=== PATIENT | female | born 1940 | race Caucasian/White ===

== ENCOUNTER 2016-11-23 23:00 | Inpatient (IN) ==
[2016-11-24 01:06] LABS: Basophils # 0.1 10*3/uL (0.0-0.2); Basophils % 1.3 % (0.0-0.8); Eosinophils # 0.1 10*3/uL (0.0-0.87); Eosinophils % 2.6 % (0.00-10.9); Hematocrit 43.8 VOL% (35.7-47.0); Hemoglobin 14.1 GM/DL (12.0-16.0); Immature Granulocytes % 0.4 %; Immature Granulocytes Absolute 0.02 #; Lymphocytes # 1.8 10*3/uL (1.4-4.0); Lymphocytes % 40.5 % (21.3-54.2); Mean Corpuscular HGB Conc 32.2 GM/DL (32-36); Mean Corpuscular Hemoglobin 31 PG (27-34); Mean Corpuscular Volume 95.6 FL (87-102); Mean Platelet Volume 11.5 FL (9.6-12.0); Monocytes # 0.5 10*3/uL (0.11-0.8); Monocytes % 10.6 % (1.7-12.7); Neutrophils % 44.6 % (38.7-73.9); Platelet Count 164 T/CUMM (130-400); Red Blood Count 4.58 MC/CUMM (3.8-5.5); Red Cell Distribution Width 18.5 % (9.3-17.3); White Blood Count 4.5 T/CUMM (4-12)
[2016-11-24 01:20] LABS: D-Dimer 2.3 MG/L FEU; INR 1.4; PT Patient Result 15.6 SECS; Partial Thromboplastin Time 27.5 SECS (0-40)
--- NOTE | 2016-11-24 01:32 | EKG Report ---
Stationary ECG Study [facility] ER Test Date: 11/24/2016 1:30:45 AM Pat Name: STEVIE SOTO Department: Room: Gender: F [place] Operator: SR : 1940 Requested by: Santo Brown Order Number: [id number] Reading MD: MAXIME LAI Intervals [place] Rate: 84 P: 85 UT: 123 QRS: 236 QRSD: 153 T: 53 QT: 450 QTc: 491 Interpretive Statements Sinus rhythm with AV synchronous ventricular pacing Electronically Signed On 11-24-16 07:06:56 CDT by MAXIME LAI [email or web address]
[2016-11-24 01:34] LABS: Alanine Aminotransferase 27 U/L (13-56); Albumin 3.1 G/DL (3.4-5.0); Alkaline Phosphatase 154 U/L (45-117); Amylase 33 U/L (25-115); Apearance,Urine Slightly Hazy (Clear); Aspartate Amino Transferase 38 U/L (0-37); Bacteria,Urine Many /HPF (Few); Bilirubin,Urine Negative (Negative); Blood Urea Nitrogen 32 MG/DL (7-18); Blood, Urine Moderate mg/dL (Negative); Calcium 8.9 MG/DL (8.5-10.1); Glucose 61 MG/DL (74-106); Glucose,Urine (UA) Negative (Negative); Hyaline Casts,Urine 20 /LPF (0-3); Ketones,Urine Negative (Negative); Magnesium 2.3 MG/DL (1.8-2.4); Nitrite,Urine Negative (Negative); Osmolality,Calculated 277.8 MOS/KG (273-304); Potassium 5.1 MMOL/L (3.5-5.1); Protein,Urine 100 MG/DL; RBC,Urine 29 /HPF (0-4); Sodium 137 MMOL/L (136-145); Squamous Epithelial Cell,Urine Occasional /HPF (0-10); Total Protein 6.4 G/DL (6.4-8.3); Troponin I Only 0.016 NG/ML (0.00-0.045); Urine Color Yellow (Yellow); Urine Specific Gravity 1.008 (1.001-1.035); Urine Urobilinogen < 2.0 EU/DL (0.2-1.0); WBC,Urine 42 /HPF (0-6)
--- NOTE | 2016-11-24 01:44 | Emergency Department Note ---
Arrival - Arrival Chief Complaint: Nausea/Vomiting/Diarrhea Stated Complaint: nausea ,vomiting not eating fluid build up sob ED Nursing Triage Note: Tonya states that patient has been having problems with nausea, vomiting, not eating, fluid retention and shortness of breath for the past month. Patient actively vomiting upon triage. Patient has an extensive history including HTN, CHF, high cholesterol, DM. Patient has a left chest wall ICD. Patient's adjunct art history instructor is Dr. Sawant. No signs of respiratory distress upon triage. Mode of Arrival: Wheelchair Limitations: No Limitations Source: Patient, Family Time Seen by Provider: 11/24/16 00:29 - History of Present Illness HPI Narrative: Family complains of nausea and vomiting off and on for months, worse in the past week. He also complained that the patient has had decreased intake and her legs are swelling and she has been more short of breath for the past week. The patient denies any pain, shortness of breath, nausea at present. Date of Last Menstrual Period: hysterectomy Allergies/Adverse Reactions: Allergies Allergy/AdvReac Type Severity Reaction Status Date / Time No Known Allergies Allergy Verified 09/28/16 13:37 Home Medications: Home Medications Medication Instructions Recorded Confirmed Type Aspirin EC Tab 81 mg PO DAILY #30 tablet 11/21/15 11/23/16 Rx Ferrous Sulfate 325 mg PO BID 04/29/16 11/23/16 History Budesonide/Formoterol 160-4.5 1 puff INH BID 09/02/16 11/23/16 History [Symbicort 160-4.5] Docusate Sodium Cap [Colace Cap] 100 mg PO BID 09/02/16 11/23/16 History Albuterol Inhaler [Proventil 2 puff INH Q4H PRN #1 inhaler 09/11/16 11/23/16 Rx Inhaler] Furosemide Tab [Lasix Tab] 40 mg PO DAILY #30 tablet 09/11/16 11/23/16 Rx Metoprolol Succinate Xl [Toprol Xl] 50 mg PO BID #60 tablet 09/11/16 11/23/16 Rx Pantoprazole Tab [Protonix Tab] 40 mg PO DAILY #30 tablet 09/11/16 11/23/16 Rx Lisinopril 2.5 mg PO DAILY 10/05/16 11/23/16 History cephALEXin [Keflex] 500 mg PO Q12HR #14 capsule 11/04/16 11/23/16 Rx Review of System - Review of System 12 point system: reviewed and no additional remarkable complaints except as stated - Review of System Constitutional: Absent: fever Head/Ears/Nose/Throat: Absent: nasal drainage Respiratory: Present: cough (Mild), respiratory distress Cardiovascular: Present: edema. Absent: chest pain Gastrointestinal: Present: nausea, vomiting. Absent: abdominal pain, diarrhea, constipation Genitourinary female: Absent: dysuria, frequency Medical,Surgical,& Family Hx - Medical History Cardio: History of: Cardiac Dysrhythmia, CHF, Hypertension No history of: CAD Neurology: No history of: Seizures Endocrine: History of: Diabetes Mellitus (IDDM), Diabetes Mellitus (NIDDM), Dyslipidemia Respiratory: History of: COPD No history of: Intubation Renal: History of: Renal Failure Gastrointestinal: History of: GERD No history of: Gastrointestinal Cancer (mass removed from colon done @ [facility]) Hematology: No history of: Anemia Other: No history of: MRSA, Vancomycin-Resistant Enterococci - Surgical History Cardiac Surgeries: Sugical HX of: Cardiac Catheterization Thoracic Surgeries: Patient denies;: Organ Transplant, Lobectomy Neurologic Surgeries: Patient denies: Neurologic Surgery Abdominal Surgeries: Surgical HX of: Abdominal Surgery, Colonoscopy, EGD Reproductive Surgeries: Surgical HX of;: Gynecologic Surgery, Hysterectomy Patient denies;: Genitourinary Surgery Orthopedic Surgeries: Surgical HX of;: Orthopedic Surgery (right hip) - Family History Family History: Reports;: Family Cancer (mom pancreatic), Family Diabetes, Family Heart Disease, Family Hypertension - Social History Smoking Status: Never smoker Frequency of Alcohol Use: None Type of Drug Use: None Exam Physical Examination: GENERAL: Alert. No acute distress. HEENT: Normocephalic and atraumatic. There is no nasal drainage. No pharyngeal erythema or exudate. Lips appear slightly blue but this is patchy and does not appear to be cyanosis. NECK: Normal inspection. Supple. No lymphadenopathy or meningismus. LUNGS: No respiratory distress. Good air movement. Rales in both bases, mild. HEART: Regular rate and rhythm. 2/6 systolic murmur. ABDOMEN: Soft, nontender and nondistended with normoactive bowel sounds. BACK: Normal inspection. SKIN: Color normal. Warm and dry. EXTREMITIES: Nontender. Normal range of motion. Pitting edema to the mid tibias bilaterally. NEUROLOGICAL/PSYCHIATRIC: Alert and oriented -3 with normal mood and affect. Cranial nerves normal. No motor or sensory deficit. Vital Signs: Vital Signs Temperature 97.4 F L 11/23/16 23:31 Pulse Rate 783 H 11/23/16 23:31 Respiratory Rate 17 11/23/16 23:31 Blood Pressure 123/74 11/23/16 23:31 O2 Sat by Pulse Oximetry 96 11/23/16 23:11 Course - Reevaluation(s) Reevaluation #1: I have discussed the patient with the hospitalist service. They will see her in the ER and admit. Time: 02:12 Results - Labs CBC & BMP: 11/24/16 00:52 11/24/16 00:52 Lab Results: I have reviewed the patients labs Labs: Laboratory Tests 11/24/16 11/24/16 11/24/16 00:52 00:52 00:52 INR 1.4 D-Dimer, Quantitative 2.3 Total Bilirubin 1.40 H AST 38 H Alkaline Phosphatase 154 H Total Creatine Kinase 43 CK-MB (CK-2) 1.2 Troponin I 0.016 Ur Specific [place] 1.008 Urine Leukocytes Moderate H Urine RBC 29 Urine WBC 42 Urine WBC Clumps Moderate Urine Bacteria Many - Impressions EKG shows an electronic ventricular pacemaker at 84. Chest x-ray shows cardiomegaly with pulmonary edema, however, the film appears underexposed. KUB shows a large amount of stool but no other acute abnormality. Disposition Clinical Impression: UTI (urinary tract infection), SOB (shortness of breath), CHF (congestive heart failure), Renal insufficiency, Nausea & vomiting Condition: Stable Time of Disposition: 01:51
[2016-11-24] MEDS ORDERED: LEVOFLOXACIN INJ 500 MG in PREMIX 1 EACH IV STA (02:13)
[2016-11-24] MEDS ORDERED: FUROSEMIDE 20 MG/2 ML VIAL IV STA (02:13)
[2016-11-24] MEDS ORDERED: DEXTROSE 50% 25 GM/50 ML VIAL IV ONE (02:43)
[2016-11-24] MEDS ORDERED: FUROSEMIDE 20 MG/2 ML VIAL ONE (02:43)
[2016-11-24] MEDS ORDERED: LEVOFLOXACIN INJ 100 ML IV ONE (02:43)
[2016-11-24] MEDS ORDERED: DEXTROSE 50% 25 GM/50 ML VIAL IV STA ×2 (02:45→02:48)
[2016-11-24] MEDS ORDERED: ALBUTEROL 2.5 MG/3 ML NEB RESP TX PRN (03:07)
--- NOTE | 2016-11-24 03:12 | Hospitalist History & Physical ---
Assessment and Plan (1) Acute kidney injury Status: Acute Assessment and plan: Her creatinine today is 1.9. Will repeat BMP in the coming 24 hours. If this persists I believe nephrology should see the patient. This could be this result of dehydration given poor oral intake and nausea and vomiting. She also has a urinary tract infection as cause for her to have ultrasound of the kidneys on outside chance she got a localized abscess in the kidney Current Visit: Yes (2) Hypoglycemia Status: Acute Assessment and plan: Give patient D50 W now. Patient uses insulin at home but she has not been eating much; I suspect is the reason for the hypoglycemia. repeat BMP in the morning Current Visit: Yes (3) Type 2 diabetes mellitus with insulin therapy Status: Acute Assessment and plan: Continue home medication. Wash sugar levels closely patient on Accu-Cheks q. before meals and at bedtime and a 1800 ADA healthy diet Current Visit: Yes (4) Nausea & vomiting Status: Acute Assessment and plan: Patient on Zofran 4 mg IV every 4 hours as needed. Current Visit: Yes (5) UTI (urinary tract infection) Status: Acute Assessment and plan: Send a urine Gram stain and urine culture. Start the patient on levofloxacin 750 mg daily. First dose is really been given in the emergency room. Current Visit: Yes History of Present Illness History of present illness: Ms. Castellanos is a 76 year old female brought to the emergency room by her Family complains of nausea and vomiting off and on for months, worse in the past week. He also complained that the patient has had decreased intake and her legs are swelling and she has been more short of breath for the past week. The patient denies any pain, shortness of breath, nausea at present but it looks rather dry and tired. While seen in triage patient vomited once. She is getting to the emergency room bed she has not vomited but still feels nauseated denies any chills at this time. He is a diabetic who uses insulin she has been taking the insulin though oral intake is quite diminished. Patient was found to have sugar of 40 mg percent in the emergency room D50 W had to be given. Mental status is normal. Home Medications Medication Instructions Recorded Confirmed Type Aspirin EC Tab 81 mg PO DAILY #30 tablet 11/21/15 11/23/16 Rx Ferrous Sulfate 325 mg PO BID 04/29/16 11/23/16 History Budesonide/Formoterol 160-4.5 1 puff INH BID 09/02/16 11/23/16 History [Symbicort 160-4.5] Docusate Sodium Cap [Colace Cap] 100 mg PO BID 09/02/16 11/23/16 History Albuterol Inhaler [Proventil 2 puff INH Q4H PRN #1 inhaler 09/11/16 11/23/16 Rx Inhaler] Furosemide Tab [Lasix Tab] 40 mg PO DAILY #30 tablet 09/11/16 11/23/16 Rx Metoprolol Succinate Xl [Toprol Xl] 50 mg PO BID #60 tablet 09/11/16 11/23/16 Rx Pantoprazole Tab [Protonix Tab] 40 mg PO DAILY #30 tablet 09/11/16 11/23/16 Rx Lisinopril 2.5 mg PO DAILY 10/05/16 11/23/16 History cephALEXin [Keflex] 500 mg PO Q12HR #14 capsule 11/04/16 11/23/16 Rx Allergies Allergy/AdvReac Type Severity Reaction Status Date / Time No Known Allergies Allergy Verified 09/28/16 13:37 Medical,Surgical,& Family Hx - Medical History Cardio: History of: Cardiac Dysrhythmia, CHF, Hypertension No history of: CAD Neurology: No history of: Seizures Endocrine: History of: Diabetes Mellitus (IDDM), Diabetes Mellitus (NIDDM), Dyslipidemia Respiratory: History of: COPD No history of: Intubation Renal: History of: Renal Failure Gastrointestinal: History of: GERD No history of: Gastrointestinal Cancer (mass removed from colon done @ [facility]) Hematology: No history of: Anemia Other: No history of: MRSA, Vancomycin-Resistant Enterococci - Surgical History Cardiac Surgeries: Sugical HX of: Cardiac Catheterization Thoracic Surgeries: Patient denies;: Organ Transplant, Lobectomy Neurologic Surgeries: Patient denies: Neurologic Surgery Abdominal Surgeries: Surgical HX of: Abdominal Surgery, Colonoscopy, EGD Reproductive Surgeries: Surgical HX of;: Gynecologic Surgery, Hysterectomy Patient denies;: Genitourinary Surgery Orthopedic Surgeries: Surgical HX of;: Orthopedic Surgery (right hip) - Family History Family History: Reports;: Family Cancer (mom pancreatic), Family Diabetes, Family Heart Disease, Family Hypertension - Social History Smoking Status: Never smoker Frequency of Alcohol Use: None Type of Drug Use: None Review of systems: A 12 point system assessment was done. This is significant for the chief complaint and past medical history and history of presenting illness. He did have some leg edema does have some skin pustular lesions that are crusting suggesting folliculitis she has a pacemaker in the relatively new is no sign of infection at the pacemaker. Exam - Constitutional Vitals: Period Temp Pulse Resp BP Sys/Jane Pulse Ox Last 24 Hr 97.4 F-97.4 F 78-783 17-17 123-123/74-74 96 General appearance: no acute distress, under weight - Head Head exam: Present: normocephalic, atraumatic - Eye Eye exam: Present: EOMI, other (Anicteric sclera no conjunctival petechia) Pupils: Present: LINDA - ENT ENT exam: Present: normal exam, other (Dry lips and dry mucosa) - Neck Neck exam: Present: normal inspection, other (Supple neck no JVD no thyromegaly) - Respiratory Respiratory exam: Present: clear to auscultation bilaterally, other (No wheezing no rales) - Cardiovascular Cardiovascular exam: Present: regular rate and rhythm, other (Paced beats on EKG ) - GI/Abdominal GI/Abdominal exam: Present: normal bowel sounds - Extremities Exam Extremities exam: Present: normal inspection, full ROM, other (Noted leg edema mostly below the knee) - Neurological Exam Neurological exam: Present: alert, oriented X3, CN II-XII intact - Psychiatric Psychiatric exam: Present: normal affect, normal mood, other (Looks tired) - Skin Skin exam: Present: normal color, warm, dry Results - Labs CBC & BMP: 11/24/16 00:52 11/24/16 00:52 Lab Results: I have reviewed the past 24 hour labs
[2016-11-24] MEDS ORDERED: DEXTROSE 50% 25 GM/50 ML VIAL IV PRN (03:20)
[2016-11-24] MEDS ORDERED: GLUCAGON 1 MG VIAL IM PRN (03:20)
[2016-11-24 04:28] LABS: Anisocytosis 1+; Platelet Estimate Normal
[2016-11-24] MEDS: SODIUM CHLORIDE 0.9% 1,000 ML IV SCH ×2 (04:57→16:00)
--- NOTE | 2016-11-24 08:39 | Ultrasound Report ---
Exam: US renal Bilateral Date: 11/24/2016 3:17 AM Comparison: None Indication: Ultrasound abdomen limited 11/12/2016 Technique:[Multiple transabdominal real-time scans were obtained of the kidneys. Color flow scans obtained. Ultrasound images were captured and stored. This exam was initially interpreted by [facility].] Findings: Right kidney measures 98 x 40 x 30 mm. Left kidney measures 105 x 50 x 40 mm. No hydronephrosis or renal mass. Incidental 32 x 30 x 27 mm complex splenic lesion and 10 x 10 x 9 mm splenic cyst. Color flow documented in the spleen. Left pleural effusion. Impression: The kidneys are symmetric in size with no mass or hydronephrosis. Indeterminate 32 mm complex splenic lesion and additional 10 mm more simple appearing splenic cyst. Short-term follow-up ultrasound/CT may be helpful for further evaluation. Left pleural effusion. PROCEDURE INTERPRETED AT [facility] DEPARTMENT OF RADIOLOGY Final Report Signed by: Dr. Kaitlyn Archuleta
[2016-11-24] MEDS: METOPROLOL SUCCINATE XL 50 MG TABLET PO SCH ×2 (09:03→20:54)
[2016-11-24] MEDS: FUROSEMIDE 40 MG TABLET PO SCH (09:03)
[2016-11-24] MEDS: FERROUS SULFATE 325 MG TABLET PO SCH ×2 (09:03→20:53)
[2016-11-24] MEDS: LISINOPRIL 2.5 MG TABLET PO SCH (09:03)
[2016-11-24] MEDS: DOCUSATE SODIUM 100 MG CAPSULE PO SCH ×2 (09:03→20:53)
[2016-11-24] MEDS: PANTOPRAZOLE 40 MG TABLET PO SCH (09:03)
[2016-11-24] MEDS: ASPIRIN EC 81 MG TABLET PO SCH (09:03)
[2016-11-24] MEDS: BUDESONIDE/FORMOTEROL 160-4.5 INHALER 6 GM INH SCH ×2 (09:03→21:18)
--- NOTE | 2016-11-24 09:37 | XRay Report ---
Portable chest Date: 11/24/2016 Clinical history: Shortness of breath Comparison: 11/04/2016 Technique: Portable AP sitting chest Findings: Stable cardiomegaly and left subclavian atrioventricular AICD. Progressive diffuse parenchymal findings with small pleural effusions. Osteopenia with degenerative changes. Impression: Stable cardiomegaly and left subclavian atrioventricular AICD. Progressive [id number] pulmonary edema with small pleural effusions. Associated atelectasis and osteopenia. PROCEDURE INTERPRETED AT [facility] DEPARTMENT OF RADIOLOGY Final Report Signed by: Dr. Kaitlyn Archuleta
--- NOTE | 2016-11-24 09:39 | XRay Report ---
Exam: XR KUB Date: 11/24/2016 12:41 AM Comparison: 11/04/2016 Indication: Vomiting Technique:[Supine abdomen] Findings: Nonobstructed bowel gas pattern. Persistent arterial calcifications especially in the splenic artery location degenerative changes are noted. Impression: Nonobstructive bowel gas pattern. Arterial calcifications especially in the splenic artery location. PROCEDURE INTERPRETED AT [facility] DEPARTMENT OF RADIOLOGY Final Report Signed by: Dr. Kaitlyn Archuleta
--- NOTE | 2016-11-24 10:36 | Hospitalist Progress Note ---
Assessment and Plan - Time spent with patient Time spent with patient: Less than 30 minutes (1) Acute kidney injury Status: Acute Assessment and plan: Patient was admitted with acute kidney injury secondary to poor intake secondary to nausea and vomiting. Will continue cautious hydration and follow- up renal function in the a.m. Renal ultrasound is noted. Current Visit: Yes (2) IDDM (insulin dependent diabetes mellitus) Status: Chronic Assessment and plan: Patient has hypoglycemia which is related to her diabetes and likely secondary to continued outpatient regimen with little oral intake and nausea and vomiting. We will continue hydration and follow with Accu-Cheks and sliding scale only. Will hold her home doses of insulin at this time. Current Visit: No (3) UTI (urinary tract infection) Status: Acute Assessment and plan: She has been cultured and placed on IV antibiotics. Awaiting final culture ID and sensitivity. Current Visit: Yes (4) Nonischemic cardiomyopathy Status: Chronic Assessment and plan: Patient has history of nonischemic cardiomyopathy with ejection fraction noted 20%. She appears to be compensated at this time. We will continue hydration cautiously. Current Visit: No Hospitalist: Subjective Interval history: Patient been seen and examined. Chart has been reviewed. She states that she feels better. She denies any fever or chills but states she has nausea and has vomited on several occasions this morning since arrival to the floor. She denies any back pain, chest pain, shortness of breath, diarrhea or constipation. Exam - Constitutional Vitals: Period Temp Pulse Resp BP Sys/Jane Pulse Ox Last 24 Hr 97.0 F-98.4 F 78-783 17-20 123-135/74-91 94-96 General appearance: no acute distress - Head Head exam: Present: normocephalic, atraumatic - Eye Eye exam: Present: EOMI Pupils: Present: LINDA - ENT ENT exam: Present: normal exam - Neck Neck exam: Present: normal inspection - Respiratory Respiratory exam: Present: clear to auscultation bilaterally. Absent: rales - Cardiovascular Cardiovascular exam: Present: regular rate and rhythm. Absent: tachycardia - GI/Abdominal GI/Abdominal exam: Present: normal bowel sounds, soft. Absent: mass, tenderness - Extremities Exam Extremities exam: Absent: calf tenderness, edema - Back Exam Back exam: Present: normal inspection - Neurological Exam Neurological exam: Present: alert, oriented X3, CN II-XII intact. Absent: motor sensory deficit - Psychiatric Psychiatric exam: Present: normal affect, normal mood. Absent: agitated, anxious - Skin Skin exam: Present: warm, dry. Absent: rash Results - Labs CBC & BMP: 11/24/16 00:52 11/24/16 00:52 Lab Results: I have reviewed the past 24 hour labs - Diagnostic Findings Procedure: Ultrasound: report reviewed by me
[2016-11-25] MEDS: SODIUM CHLORIDE 0.9% 1,000 ML IV SCH ×2 (00:58→10:12)
[2016-11-25] MEDS: LEVOFLOXACIN INJ 250 MG in PREMIX 1 EACH IV SCH (02:54)
[2016-11-25 06:16] LABS: Basophils # 0.1 10*3/uL (0.0-0.2); Basophils % 1.9 % (0.0-0.8); Eosinophils # 0.1 10*3/uL (0.0-0.87); Eosinophils % 2.6 % (0.00-10.9); Hematocrit 44.2 VOL% (35.7-47.0); Immature Granulocytes % 0.2 %; Immature Granulocytes Absolute 0.01 #; Lymphocytes # 1.7 10*3/uL (1.4-4.0); Lymphocytes % 35.4 % (21.3-54.2); Mean Corpuscular HGB Conc 31.7 GM/DL (32-36); Mean Corpuscular Hemoglobin 30 PG (27-34); Mean Corpuscular Volume 95.5 FL (87-102); Mean Platelet Volume 11.6 FL (9.6-12.0); Monocytes # 0.5 10*3/uL (0.11-0.8); Neutrophils # 2.3 10*3/uL (1.4-7.4); Neutrophils % 49.9 % (38.7-73.9); Platelet Count 171 T/CUMM (130-400); Red Blood Count 4.63 MC/CUMM (3.8-5.5); Red Cell Distribution Width 18.5 % (9.3-17.3); White Blood Count 4.7 T/CUMM (4-12)
[2016-11-25 06:44] LABS: Calcium 8.2 MG/DL (8.5-10.1); Potassium 4.2 MMOL/L (3.5-5.1)
[2016-11-25] MEDS: FUROSEMIDE 40 MG TABLET PO SCH (08:51)
[2016-11-25] MEDS: ASPIRIN EC 81 MG TABLET PO SCH (08:51)
[2016-11-25] MEDS: METOPROLOL SUCCINATE XL 50 MG TABLET PO SCH ×2 (08:51→20:55)
[2016-11-25] MEDS: DOCUSATE SODIUM 100 MG CAPSULE PO SCH ×2 (08:51→20:55)
[2016-11-25] MEDS: LISINOPRIL 2.5 MG TABLET PO SCH (08:51)
[2016-11-25] MEDS: FERROUS SULFATE 325 MG TABLET PO SCH ×2 (08:51→20:55)
[2016-11-25] MEDS: PANTOPRAZOLE 40 MG TABLET PO SCH (08:52)
[2016-11-25] MEDS: BUDESONIDE/FORMOTEROL 160-4.5 INHALER 6 GM INH SCH ×2 (08:52→20:57)
[2016-11-25] MEDS ORDERED: ONDANSETRON 4 MG/2 ML VIAL IV PRN (10:07)
--- NOTE | 2016-11-25 18:18 | Hospitalist Progress Note ---
Assessment and Plan (1) UTI (urinary tract infection) Status: Acute Assessment and plan: Continue antibiotics and follow-up urine culture. Current Visit: Yes (2) Nonischemic cardiomyopathy Status: Acute Assessment and plan: Ejection fraction 20%. Hydrate with caution. Current Visit: No (3) Chronic kidney disease Status: Chronic Current Visit: No Qualifiers: Chronic kidney disease stage: stage 3 (moderate) Qualified Code(s): N18.3 - Chronic kidney disease, stage 3 (moderate) (4) CHF (congestive heart failure), NYHA class III Status: Acute Current Visit: No Qualifiers: Congestive heart failure type: combined (5) Status post AICD placement Status: Chronic Current Visit: No (6) Acute kidney injury Status: Acute Current Visit: Yes Hospitalist: Subjective Interval history: Patient seen and examined. No acute events overnight. Case discussed with nursing staff. Labs reviewed. Patient with nausea and vomiting this morning requiring Zofran. Exam - Constitutional Vitals: Period Temp Pulse Resp BP Sys/Jane Pulse Ox Last 24 Hr 97.3 F-98.2 F 78-84 18-20 120-130/77-89 91-99 Exam: Constitutional System: Mild distress. No tremulousness. Head: Normocephalic, atraumatic. Ears, Nose and Throat System: No pain or tenderness. No epistaxis or discharge Eyes System: Pupils equal, round, and reactive. Extraocular muscles intact. Neck: Supple, without adenopathy, No jugular venous distention. Respiratory System: Chest rales bilaterally to auscultation. Cardiovascular System: Heart with regular rate and rhythm. No murmur. GI System: Abdomen soft, nontender. Normo active bowel sounds present. Musculoskeletal System: limbs with mild pedal edema bilaterally. Full distal pulses. Neurological System: No discernable sensory deficit. No aphasia Psychiatric System: Conversation is rational Results - Labs CBC & BMP: 11/25/16 04:30 11/25/16 04:30 Lab Results: I have reviewed the past 24 hour labs
[2016-11-25] MEDS: ZALEPLON 5 MG CAPSULE PO PRN (20:55)
[2016-11-26] MEDS: SODIUM CHLORIDE 0.9% 1,000 ML IV SCH ×5 (01:30→16:24)
[2016-11-26] MEDS: LEVOFLOXACIN INJ 250 MG in PREMIX 1 EACH IV SCH ×2 (03:10→09:11)
[2016-11-26] MEDS: FERROUS SULFATE 325 MG TABLET PO SCH ×2 (09:10→20:29)
[2016-11-26] MEDS: ASPIRIN EC 81 MG TABLET PO SCH (09:10)
[2016-11-26] MEDS: LISINOPRIL 2.5 MG TABLET PO SCH (09:10)
[2016-11-26] MEDS: DOCUSATE SODIUM 100 MG CAPSULE PO SCH ×2 (09:10→20:29)
[2016-11-26] MEDS: PANTOPRAZOLE 40 MG TABLET PO SCH (09:10)
[2016-11-26] MEDS: BUDESONIDE/FORMOTEROL 160-4.5 INHALER 6 GM INH SCH ×2 (09:11→20:29)
[2016-11-26] MEDS: METOPROLOL SUCCINATE XL 50 MG TABLET PO SCH ×2 (09:11→20:29)
--- NOTE | 2016-11-26 17:13 | Hospitalist Progress Note ---
Assessment and Plan (1) UTI (urinary tract infection) Status: Acute Assessment and plan: Continue antibiotics and follow-up urine culture. Current Visit: Yes (2) Nonischemic cardiomyopathy Status: Acute Assessment and plan: Ejection fraction 15% on echo from 09/29/16 Hydrate with caution. Current Visit: No (3) Chronic kidney disease Status: Chronic Current Visit: No Qualifiers: Chronic kidney disease stage: stage 3 (moderate) Qualified Code(s): N18.3 - Chronic kidney disease, stage 3 (moderate) (4) CHF (congestive heart failure), NYHA class III Status: Acute Current Visit: No Qualifiers: Congestive heart failure type: combined (5) Status post AICD placement Status: Chronic Current Visit: No (6) Acute kidney injury Status: Acute Current Visit: Yes Hospitalist: Subjective Interval history: Patient reports improvement of symptoms. Patient seen and examined. No acute events overnight. Case discussed with nursing staff. Labs reviewed. Exam - Constitutional Vitals: Period Temp Pulse Resp BP Sys/Jane Pulse Ox Last 24 Hr 97.2 F-98.2 F 80-85 18-20 118-141/67-87 97-100 Exam: Constitutional System: Mild distress. No tremulousness. Head: Normocephalic, atraumatic. Ears, Nose and Throat System: No pain or tenderness. No epistaxis or discharge Eyes System: Pupils equal, round, and reactive. Extraocular muscles intact. Neck: Supple, without adenopathy, No jugular venous distention. Respiratory System: Chest rales bilaterally to auscultation. Cardiovascular System: Heart with regular rate and rhythm. No murmur. GI System: Abdomen soft, nontender. Normo active bowel sounds present. Musculoskeletal System: limbs with mild pedal edema bilaterally. Full distal pulses. Neurological System: No discernable sensory deficit. No aphasia Psychiatric System: Conversation is rational Results - Labs CBC & BMP: 11/25/16 04:30 11/25/16 04:30 Lab Results: I have reviewed the past 24 hour labs
[2016-11-26 19:42] LABS: Apearance,Urine CLOUDY (Clear); Bacteria,Urine Occasional /HPF (Few); Bilirubin,Urine Negative (Negative); Blood, Urine Large mg/dL (Negative); Glucose,Urine (UA) Negative (Negative); Hyaline Casts,Urine 16 /LPF (0-3); Ketones,Urine 5 mg/dL (Negative); Mucus,Urine Occasional /LPF (Occasional); Nitrite,Urine Negative (Negative); Protein,Urine 100 MG/DL; RBC,Urine 84 /HPF (0-4); Squamous Epithelial Cell,Urine Occasional /HPF (0-10); Urine Color Yellow (Yellow); Urine Specific Gravity 1.013 (1.001-1.035); Urine Urobilinogen < 2.0 EU/DL (0.2-1.0); WBC,Urine 170 /HPF (0-6)
[2016-11-27] MEDS: ACETAMINOPHEN 325 MG TABLET PO PRN ×2 (00:40→18:16)
[2016-11-27] MEDS: SODIUM CHLORIDE 0.9% 1,000 ML IV SCH ×2 (04:12→18:12)
[2016-11-27 04:35] LABS: Basophils # 0.1 10*3/uL (0.0-0.2); Basophils % 1.3 % (0.0-0.8); Eosinophils # 0.1 10*3/uL (0.0-0.87); Eosinophils % 2.8 % (0.00-10.9); Hematocrit 43.8 VOL% (35.7-47.0); Hemoglobin 13.5 GM/DL (12.0-16.0); Immature Granulocytes % 0.4 %; Immature Granulocytes Absolute 0.02 #; Lymphocytes # 1.6 10*3/uL (1.4-4.0); Lymphocytes % 33.5 % (21.3-54.2); Mean Corpuscular HGB Conc 30.8 GM/DL (32-36); Mean Corpuscular Hemoglobin 30 PG (27-34); Mean Corpuscular Volume 97.3 FL (87-102); Mean Platelet Volume 11.1 FL (9.6-12.0); Monocytes # 0.5 10*3/uL (0.11-0.8); Monocytes % 10.2 % (1.7-12.7); NRBC # 0.02 10*3/uL; Neutrophils # 2.5 10*3/uL (1.4-7.4); Neutrophils % 51.8 % (38.7-73.9); Platelet Count 156 T/CUMM (130-400); Red Cell Distribution Width 18.9 % (9.3-17.3); White Blood Count 4.7 T/CUMM (4-12)
[2016-11-27 05:05] LABS: Calcium 8.3 MG/DL (8.5-10.1); Magnesium 2.1 MG/DL (1.8-2.4); Potassium 4.2 MMOL/L (3.5-5.1)
[2016-11-27] MEDS: ASPIRIN EC 81 MG TABLET PO SCH (09:11)
[2016-11-27] MEDS: FERROUS SULFATE 325 MG TABLET PO SCH ×2 (09:11→20:37)
[2016-11-27] MEDS: METOPROLOL SUCCINATE XL 50 MG TABLET PO SCH ×2 (09:11→20:37)
[2016-11-27] MEDS: DOCUSATE SODIUM 100 MG CAPSULE PO SCH ×2 (09:11→20:37)
[2016-11-27] MEDS: PANTOPRAZOLE 40 MG TABLET PO SCH (09:11)
[2016-11-27] MEDS: BUDESONIDE/FORMOTEROL 160-4.5 INHALER 6 GM INH SCH ×2 (09:12→20:41)
[2016-11-27] MEDS: LISINOPRIL 2.5 MG TABLET PO SCH (11:52)
[2016-11-27] MEDS: INSULIN REGULAR 100 UNIT/ML SUBCUT SCH ×3 (11:52→21:11)
--- NOTE | 2016-11-27 14:02 | Hospitalist Progress Note ---
Assessment and Plan (1) Nonischemic cardiomyopathy Status: Acute Current Visit: No (2) Chronic kidney disease Status: Chronic Current Visit: No Qualifiers: Chronic kidney disease stage: stage 3 (moderate) Qualified Code(s): N18.3 - Chronic kidney disease, stage 3 (moderate) (3) CHF (congestive heart failure), NYHA class III Status: Acute Current Visit: No Qualifiers: Congestive heart failure type: combined (4) Status post AICD placement Status: Chronic Current Visit: No (5) UTI (urinary tract infection) Status: Acute Current Visit: Yes (6) Acute kidney injury Status: Acute Assessment and plan: Our plan for this patient will be follow-up on the results of her urine cultures. They are only 12 hours old. The be finalized at 48 hours. Per physical exam she does have rales bilaterally. She has an ischemic cardiomyopathy with EF of 15%. Creatinine is almost at his baseline. Patient should be a to be discharged back on her Lasix when at the time of discharge. Current Visit: Yes Hospitalist: Subjective Interval history: Patient is feeling pretty good no real complaints. Exam - Constitutional Vitals: Period Temp Pulse Resp BP Sys/Jane Pulse Ox Last 24 Hr 97.2 F-98.3 F 80-84 18-20 119-124/74-84 95-99 General appearance: normal weight - Head Head exam: Present: normal inspection - ENT ENT exam: Present: normal exam - Neck Neck exam: Present: normal inspection - Respiratory Respiratory exam: Present: rales - Cardiovascular Cardiovascular exam: Present: regular rate and rhythm - GI/Abdominal GI/Abdominal exam: Present: normal bowel sounds - Extremities Exam Extremities exam: Present: normal inspection - Back Exam Back exam: Present: normal inspection - Neurological Exam Neurological exam: Present: alert - Psychiatric Psychiatric exam: Present: normal affect - Skin Skin exam: Present: normal color Results - Labs CBC & BMP: 11/27/16 03:28 11/27/16 03:28
[2016-11-27] MEDS: ZALEPLON 5 MG CAPSULE PO PRN (23:54)
[2016-11-28] MEDS: INSULIN REGULAR 100 UNIT/ML SUBCUT SCH ×2 (09:13→12:00)
[2016-11-28] MEDS: FERROUS SULFATE 325 MG TABLET PO SCH (09:14)
[2016-11-28] MEDS: METOPROLOL SUCCINATE XL 50 MG TABLET PO SCH (09:14)
[2016-11-28] MEDS: PANTOPRAZOLE 40 MG TABLET PO SCH (09:14)
[2016-11-28] MEDS: ASPIRIN EC 81 MG TABLET PO SCH (09:14)
[2016-11-28] MEDS: LEVOFLOXACIN INJ 250 MG in PREMIX 1 EACH IV SCH ×2 (09:14→11:40)
[2016-11-28] MEDS: DOCUSATE SODIUM 100 MG CAPSULE PO SCH (09:14)
[2016-11-28] MEDS: LISINOPRIL 2.5 MG TABLET PO SCH (09:14)
[2016-11-28] MEDS: BUDESONIDE/FORMOTEROL 160-4.5 INHALER 6 GM INH SCH (09:15)
[2016-11-28 11:52] VITALS: BP 129/82
[2016-11-28] MEDS: ACETAMINOPHEN 325 MG TABLET PO PRN (11:59)
--- NOTE | 2016-11-28 14:26 | XRay Report ---
XR lumbar spine AP/LAT Indication: Back pain Comparison: None. Technique: AP and lateral images of the lumbar spine were performed. Additional spot lateral image of the lumbar sacral junction was obtained. Findings: Depression of superior endplate L5 is minimal. Diffuse osteopenia is demonstrated. Facet joint narrowing and sclerotic change is present from L3-4 through L5-S1. Diffuse intimal calcification of the aorta is present. Moderate amount stool is noted throughout large bowel. A bowel suture line is present at the level of the rectum. Impression: 1. Minimal depression of superior endplate of L5 is demonstrated. This appears chronic when compared to CT of the pelvis from 12/19/2012. No acute findings are suggested. Facet arthropathy and narrowing is most prevalent at L4-5 and L5-S1. 11/28/2016 2:21 PM PROCEDURE INTERPRETED AT [facility] DEPARTMENT OF RADIOLOGY Final Report Signed by: Dr. Werner Ybarra
--- NOTE | 2016-11-28 15:49 | Discharge Summary ---
Hospital Course - Hospital Course Hospital Course: His hospitalization included patient admitted for nausea vomiting urinary tract infection. She also had evidence of acute kidney injury that resolved. She has a history of cardiomyopathy with an EF approximately 20%. She responded to IV hydration. She remained afebrile the rest of her vitals have been stable. She had an x-ray of her lower spine for history of falls. That showed evidence of chronic arthritis changes. The rest of hospitalization is membrane unremarkable at this time she is reached maximal hospitalization is prepared for discharge. - Time spent with patient Time with patient DS: Less than 30 minutes Diagnosis - Discharge Diagnosis (1) CHF (congestive heart failure) Status: Chronic (2) Nonischemic cardiomyopathy Status: Chronic (3) HTN (hypertension) Status: Chronic (4) CHF (congestive heart failure), NYHA class III Status: Acute Discharge Plan - Discharge Data Disposition: Disch To Home/Self Care Condition at Discharge: Stable Activity: resume usual activities as tolerated - Discharge Medications New Metoprolol Succinate Xl [Toprol Xl] 50 mg PO BID #30 tablet Continue Aspirin EC Tab 81 mg PO DAILY #30 tablet Ferrous Sulfate 325 mg PO BID Budesonide/Formoterol 160-4.5 [Symbicort 160-4.5] 1 puff INH BID Pantoprazole Tab [Protonix Tab] 40 mg PO DAILY #30 tablet Metoprolol Succinate Xl [Toprol Xl] 50 mg PO BID Insulin Degludec [Tresiba Flextouch U-200] 8 units SUBCUT DAILY W/BREAKFAST Insulin NPH Human Isophane [NovoLIN N] 10 units SUBCUT DAILY W/LUNCH Docusate Sodium Cap [Colace Cap] 100 mg PO BID Albuterol Inhaler [Proventil Inhaler] 2 puff INH Q4H PRN #1 inhaler PRN Reason: Shortness Of Breath/Wheezing Lisinopril 2.5 mg PO DAILY Furosemide Tab [Lasix Tab] 40 mg PO BID DIURETIC - Follow Up or Referral - Forms/Instructions Additional Discharge Instructions: Follow-up with primary provider in 1 week. Exam - Constitutional Vitals: Period Temp Pulse Resp BP Sys/Jane Pulse Ox Last 24 Hr 96.9 F-98.2 F 79-86 18-20 115-129/77-88 89-97 General appearance: over weight - Head Head exam: Present: normal inspection - Neck Neck exam: Present: normal inspection - Respiratory Respiratory exam: Present: clear to auscultation bilaterally - Cardiovascular Cardiovascular exam: Present: regular rate and rhythm - GI/Abdominal GI/Abdominal exam: Present: normal bowel sounds - Neurological Exam Neurological exam: Present: alert, oriented X3, CN II-XII intact - Psychiatric Psychiatric exam: Present: normal affect, normal mood Discharge Results Labs on day of discharge: Labs from last 24 hours 11/28/16 11/27/16 11/27/16 11:10 20:59 16:54 POC Glucose 309 H 154 H 218 H 11/27/16 11/27/16 11:26 07:41 POC Glucose 254 H 202 H DS: Provider Date of admission: 11/24/16 03:01 Primary care physician: Earline Goff M.D. Attending physician on admission: Mika Martinez MD Discharging clinician: Faisal Sorto Jr., MD
--- NOTE | 2016-12-05 09:21 | Physician Query Form ---
CLICK EDIT DOCUMENT TO SELECT QUERY ANSWER --> OK --> SIGN Sandi Khalil RN [employer] Curator W) [phone] (f) [phone] [email or web address]: Make your selection(s) from the choices in EACH section by typing an "x" and enter comments in the comment section. Please use your independent medical judgment in providing your response. This request does not imply that any particular answer is desired or expected. CLINICAL INDICATORS: (Providers should not edit this section) Based on conflicting documentation of both "Nonischemic Cardiomyopathy" and "Ischemic Cardiomyopathy" Can you please further clarify the type of Cardiomyopathy? ( x) Non-ischemic ( ) Ischemic ( ) Viral ( ) Dilated ( ) Hypertensive ( ) Arteriosclerotic ( ) Due to alcohol ( ) Due to drugs, specify drug: ( ) Due to sarcoidosis ( ) Due to tuberculosis ( ) Due to progressive muscular dystrophy ( ) Amyloid ( ) Congenital ( ) Other type, please specify: ( ) Clinically unable to determine COMMENTS: PLEASE ALSO DOCUMENT RESPONSE IN PROGRESS NOTES AND/OR DISCHARGE SUMMARY Use of terms such as suspected, likely, or probable (associated with a specific diagnosis that is being evaluated, monitored, or treated as if it exists) are acceptable and can be restated in the discharge summary if not ruled out. MTDD
== END 2016-11-28 16:54 | disposition home health service (06) | DRG 682 ==
LOC: N.ED 23:00 → N.EDINP 11-24 03:01 → SUATTDRO 11-24 03:01 → N.5E 11-24 04:19
PROVIDERS: ADMIT Internal Medicine Infectious Disease; ATTEND Internal Medicine Nephrology